=== PATIENT | female | born 1990 | race Caucasian/White ===

== ENCOUNTER 2020-08-06 06:45 | Outpatient (RCR) | payer BC ==
[~2020-08-06] VITALS: Ht 157.5 cm; Wt 109.1 kg
[~2020-08-06 06:45] MED LIST: ACHD5005 PO; AGM875T PO; AMOX250S5 PO; CEPH-507 PO; DEXAINTSOL PO; DOCU100C37 PO; HYDR473S54 PO; IBP600T1 PO; IBUP-1773 PO; METR500T PO; NORE1PAT7 TD; OXYC-12 PO; PREN1TAB39 PO; TETRACAINESUCKERS MT
[2020-08-06] MEDS ORDERED: PROM25TA14 PO (15:10)
[2020-08-06] MEDS ORDERED: BUTA1CAP41 PO (15:10)
[2020-08-06] MEDS ORDERED: RIZA10TA94 PO (15:10)
[2020-08-06] MEDS ORDERED: LEVO5TAB28 PO (15:10)
[2020-08-06] MEDS ORDERED: TOPI25TA10 PO (15:10)
[2020-08-10] MEDS ORDERED: DOCU-143 PO (12:22)
[2020-08-10] MEDS ORDERED: IBUP-1780 PO (12:22)
[2020-08-10] MEDS ORDERED: OXYC1TAB87 PO (12:22)
[2020-08-10] MEDS ORDERED: ESTR2TAB4 PO (12:22)
[2020-08-11] MEDS ORDERED: OXYC1TAB12 PO (09:18)
== END 2020-08-07 15:52 | disposition home or self-care (01) ==
LOC: PREOP 06:45
PROVIDERS: ATTEND Obstetrics & Gynecology
DX: Z01.818 Encounter for other preprocedural examination (principal)

== ENCOUNTER 2020-08-10 10:58 | Day surgery (SDC) | payer BC ==
[~2020-08-10] VITALS: Ht 163.7 cm; Wt 109.1 kg
[2020-08-10] VITALS (13 sets, daily range): BP systolic 100–130; BP diastolic 54–81
[~2020-08-10 10:58] MED LIST changes: +BUTA1CAP41 PO; +LEVO5TAB28 PO; +PROM25TA14 PO; +RIZA10TA94 PO; +TOPI25TA10 PO
[2020-08-10] MEDS ORDERED: ESTRADIOL VAGINAL CREAM 42.5 GM (ESTRACE) VG ONE (11:29)
[2020-08-10] MEDS ORDERED: LIDOCAINE/EPI 1%-1:100,000 (XYLOCAINE) 50 ML ONE (11:29)
[2020-08-10] MEDS ORDERED: ceFAZolin INJECTION 1,000 MG in WATER (STERILE) FOR INJECTION 10 ML IV ONE (11:30)
[2020-08-10] MEDS ORDERED: LACTATED RINGERS 1,000 ML IV PRN (11:30)
[2020-08-10 11:36] LABS: BASOPHILS # (AUTO) 0.1 10^3/uL (0.0-0.1); BASOPHILS % (AUTO) 1 % (0-10); EOSINOPHILS # (AUTO) 0.1 10^3/uL (0.0-0.3); EOSINOPHILS % (AUTO) 1 % (0-10); HEMATOCRIT 45 % (35-52); HEMOGLOBIN 14.4 g/dL (11.5-16.0); LYMPHOCYTES % (AUTO) 19 % (12-44); MEAN CORPUSCULAR HEMOGLOBIN 27 pg (25-34); MEAN CORPUSCULAR HGB CONC 32 g/dL (32-36); MEAN CORPUSCULAR VOLUME 85 fL (80-99); MONOCYTES # (AUTO) 0.4 10^3/uL (0.0-1.0); MONOCYTES % (AUTO) 4 % (0-12); NEUTROPHILS # (AUTO) 8.1 10^3/uL (1.8-7.8); NEUTROPHILS % (AUTO) 76 % (42-75); PLATELET COUNT 312 10^3/uL (130-400); WHITE BLOOD COUNT 10.7 10^3/uL (4.3-11.0)
[2020-08-10] MEDS ORDERED: ONDANSETRON 4 MG/2 ML (SDV) Z0FRAN ONE (11:58)
[2020-08-10] MEDS ORDERED: SEVOFLURANE (ULTANE) 15 ML INHAL SOLN ONE ×2 (11:58→14:27)
[2020-08-10] MEDS ORDERED: ROCURONIUM 10 MG/ML 5 ML SYRINGE IV ONE ×2 (11:58→13:19)
[2020-08-10] MEDS ORDERED: NEOSTIGMINE 3 MG/3 ML VIAL ONE (11:58)
[2020-08-10] MEDS ORDERED: MIDAZOLAM 2 MG/2 ML (VERSED) VIAL ONE (11:58)
[2020-08-10] MEDS ORDERED: GLYCOPYRROLATE 0.2 MG/ML (ROBINUL) 2 ML VIAL ONE (11:58)
[2020-08-10] MEDS ORDERED: LIDOCAINE PF 2% 5 ML (XYLOCAINE) VIAL ONE (11:58)
[2020-08-10] MEDS ORDERED: proPOfol 200 MG/20 ML (DIPRIVAN) VIAL IV ONE (11:58)
[2020-08-10] MEDS ORDERED: fentaNYL INJ 100 MCG/2 ML AMP ONE ×2 (11:58→16:30)
--- NOTE | 2020-08-10 12:17 | Progress Note-Pre Operative ---
Pre-Operative Progress Note H&P Reviewed The H&P was reviewed, patient examined and no changes noted. Date Seen by Provider: Aug 10, 2020 Time Seen by Provider: 12:17 Date H&P Reviewed: Aug 10, 2020 Time H&P Reviewed: 12:17 Pre-Operative Diagnosis: Dysfunctional uterine bleeding/menorrhagia/chronic pelvic pain/uterovaginal LADANMARTA DUBOSE MD Aug 10, 2020 12:17
--- NOTE | 2020-08-10 12:18 | Progress Note-Post Operative ---
Post-Operative Progess Note Surgeon (s)/Reed Repairer (s) Surgeon MARTA PICKERING MD Reed Repairer: Valery Pre-Operative Diagnosis Dysfunctional uterine bleeding/menorrhagia/chronic pelvic pain/uterovaginal Post-Operative Diagnosis Same with pathology pending Procedure & Operative Findings Date of Procedure 08/10/20 Procedure Performed/Findings Total laparoscopic hysterectomy with bilateral salpingo-oophorectomy, LSappendectomy, LS adhesiolysis and anterior vaginal repair and posterior vaginal repair as well as Dr. Ramirez performing pubovaginal sling and cystoscopy Anesthesia Type GETA Estimated Blood Loss Estimated blood loss (mL): 100cc Specimens/Packing Specimens Removed Uterus fallopian tubes and ovaries, Sigmoid epiploicic solid nodule, appendix Packing: kerlix in vagina MARTA PICKERING MD Aug 10, 2020 12:18
[2020-08-10] MEDS ORDERED: IBUP-1780 PO (12:22)
[2020-08-10] MEDS ORDERED: OXYC1TAB87 PO (12:22)
[2020-08-10] MEDS ORDERED: ESTR2TAB4 PO (12:22)
[2020-08-10] MEDS ORDERED: DOCU-143 PO (12:22)
--- NOTE | 2020-08-10 12:23 | Discharge Inst-Surgical ---
Discharge Inst-Surgical Depart Medication/Instructions New, Converted or Re-Newed RX: RX on Chart Consults/Follow Up Patient Instructions: As directed Orders & Referrals Follow Up Appt: Return to clinic on Thursday, August 13, 2020 at 9:30 AM for staple removal Call to make follow up appt. for patient in 4 weeks. Activity: Rest for 24 hours, than as tolerated. Wound Care: May remove Band-Aid tomorrow. Replace as desired. Keep incisions clean and dry. Wash daily with soap and water. Please call in RX to patient pharmacy. Diet: As tolerated may shower or tub bathe as desired. No driving for 24 hours, no alcoholic beverages for 24 hours, and nothing per vagina (no tampons, douching, or intercoUrse) for 8 weeks. Patient to return to the clinic as soon as possible for: Temperature greater than 101F, Severe Pain, Foul discharge from incision or vagina, Excessive Bleeding (more than a period). Activity Activity as Tolerated: No Diet Discharge Diet: No Restrictions MARTA PICKERING MD Aug 10, 2020 12:23
[2020-08-10] MEDS ORDERED: BENZOCAINE/MENTHOL (DERMOPLAST) 60 ML CAN TP PRN (12:30)
[2020-08-10] MEDS ORDERED: oxyCODONE/APAP 5/325MG (PERCOCET 5) TABLET PO PRN (12:30)
[2020-08-10] MEDS ORDERED: ESTROGENS CONJ INJECTION 25 MG in WATER (STERILE) FOR INJECTION 5 ML IV ONE (12:30)
[2020-08-10] MEDS ORDERED: D5 LR IV SOLUTION 1,000 ML IV SCH (12:30)
[2020-08-10] MEDS ORDERED: ONDANSETRON 4 MG/2 ML (SDV) Z0FRAN IVP PRN ×2 (12:30→14:45)
[2020-08-10] MEDS ORDERED: KETOROLAC 30 MG/ML VIAL IVP SCH (12:30)
[2020-08-10] MEDS ORDERED: HYDROmorphone 2 MG/ML VIAL (DILAUDID) ONE (14:04)
--- NOTE | 2020-08-10 14:11 | Progress Note-Post Operative ---
Post-Operative Progess Note Surgeon (s)/Artist Blacksmith (s) Surgeon HUBERT SALAS MD Artist Blacksmith: Raymond PICKERING Pre-Operative Diagnosis INCONTINENCE Post-Operative Diagnosis SAME Procedure & Operative Findings Date of Procedure 08/10/20 Procedure Performed/Findings PVS AND CYSTOSCOPY Anesthesia Type GENERAL Estimated Blood Loss Estimated blood loss (mL): NEGLIGIBLE Specimens/Packing Specimens Removed NONE PackinGM EXTRACE VAG PACK HUBERT SALAS MD Aug 10, 2020 14:11
[2020-08-10] MEDS ORDERED: ESTROGENS CONJ IV 25 MG/5 ML (PREMARIN) VIAL ONE (14:28)
[2020-08-10] MEDS ORDERED: KETOROLAC 30 MG/ML VIAL ONE (14:28)
[2020-08-10] MEDS ORDERED: WATER (STERILE) FOR INJECTION 10 ML ONE (14:28)
[2020-08-10] MEDS ORDERED: morphine INJ 10 MG/ML 1ML (SYR OR VIAL) IVP ONE (14:45)
[2020-08-10] MEDS ORDERED: HYDROmorphone 2 MG/ML VIAL (DILAUDID) IV ONE (14:45)
--- NOTE | 2020-08-10 14:45 | Anesthesia-General Post-Op ---
General Patient Condition Mental Status/LOC: Same as Preop Cardiovascular: Satisfactory Nausea/Vomiting: Absent Respiratory: Satisfactory Pain: Controlled Complications: Absent Post Op Complications Complications None Follow Up Care/Instructions Patient Instructions None needed. Anesthesia/Patient Condition Patient Condition Patient is doing well, no complaints, stable vital signs, no apparent adverse anesthesia problems. THOMAS WATSON DO Aug 10, 2020 14:45
[2020-08-10] MEDS: fentaNYL INJ 100 MCG/2 ML AMP IVP PRN ×2 (16:43→18:38)
--- NOTE | 2020-08-10 20:57 | OPERATIVE REPORT ---
DATE OF SERVICE: 08/10/2020 PREOPERATIVE DIAGNOSIS: On my part, urinary incontinence. POSTOPERATIVE DIAGNOSIS: On my part, urinary incontinence. OPERATION PERFORMED: Pubovaginal sling and cystoscopy. SURGEON: Dionisio Salas MD ANESTHESIA: General. COMPLICATIONS: None. DESCRIPTION OF PROCEDURE: After Dr. Gonzales performed the first part of his surgery and that he will dictate and opened the anterior vaginal mucosa and dissection carried toward the pubic arch. I passed the Desara One pubovaginal sling on both sides using the described technique. The sling was sitting nicely under the mid urethra with no twist, no gapping and passage of a hemostat easily between it and underlying tissue. I went ahead and removed the Belle catheter and performed cystoscopy to confirm the integrity of the bladder, ureteral orifices and urethra with no foreign bodies. I left the bladder half full to perform a Valsalva maneuver manually after removing the scope, it was negative. I reinserted the Belle catheter and Dr. Gonzales procedure was the rest of his surgery that he will dictate. Estimated blood loss on my part negligible. Job ID: [id number] DocumentID: [id number] Dictated Date: 08/10/2020 14:13:25 Theology Professor Date: 08/10/2020 20:56:42 Dictated By: DIONISIO SALAS MD
[2020-08-10] MEDS ORDERED: DOCUSATE SODIUM 100 MG (COLACE) CAP PO ONE (21:00)
[2020-08-10] MEDS: KETOROLAC 30 MG/ML VIAL IVP SCH (21:06)
[2020-08-10] MEDS ORDERED: oxyCODONE/APAP 10/325MG (PERCOCET 10) TABLET PO ONE (22:24)
[2020-08-10] MEDS: oxyCODONE/APAP 10/325MG (PERCOCET 10) TABLET PO PRN (22:31)
--- NOTE | 2020-08-10 23:22 | OPERATIVE REPORT ---
DATE OF SERVICE: 08/10/2020 PREOPERATIVE DIAGNOSES: Uterovaginal prolapse, stress urinary incontinence, menorrhagia, dysmenorrhea and pelvic pain. POSTOPERATIVE DIAGNOSES: Uterovaginal prolapse, stress urinary incontinence, menorrhagia, dysmenorrhea and pelvic pain with endometriosis, extensive pelvic adhesions and appendiceal adhesions and fibrosis, and sigmoid epiploic solid nodule OPERATIVE PROCEDURE: Total laparoscopic hysterectomy with bilateral salpingo-oophorectomy, extensive adhesiolysis, Sigmoid epiploic nodule removal, and laparoscopic appendectomy followed by anterior and posterior vaginal repairs with Dr. Meléndez doing a pubovaginal sling and cystoscopy. OPERATIVE DESCRIPTION: With the patient in the supine position under satisfactory general anesthesia, she was repositioned in dorsal lithotomy position in the [facility] and then prepped and draped in the usual fashion for abdominal vaginal surgery using the da Beth for assistance. The weighted speculum was then placed in posterior fornix of vagina, cervix exposed and grasped anteriorly with single tooth tenaculum. Uterus was sounded to 9.5 cm with uterine sound. The cervix was then serially dilated with Westley dilators to accommodate a Jennifer II manipulator, which was placed with a 25 mm colpotomy ring and a 6 mm x 8 cm uterine probe. Sutures of #1 Vicryl were placed at 3 and 9 o'clock positions of the cervix to affix the uterus to the manipulator. The patient brought in low dorsal lithotomy position. A 12 mm incision made superior to the umbilicus. Veress needle was placed through that incision, correct placement confirmed with water drop test. The abdomen was insufflated with 2.4 liters of carbon dioxide and the Veress needle was removed and a 12 mm Optiview laparoscopic port was placed easily. The laparoscope was introduced. There was obvious omentum adherent to the anterior abdominal wall extending from the pelvis and the uterus approximately chcf up to the umbilicus. Those adhesions were clear of the abdominal wall laterally. Therefore, we transilluminated the abdominal wall and placed 8 mm ports 9 cm lateral to the umbilicus and approximately 3 cm above the umbilicus. The patient was placed in Trendelenburg allowing the bowel spill out of the pelvis. The da Beth column was docked and operative instruments were placed in right and left lateral ports . I retired to the Giftiki Beth console. At the console using the monopolar shear on the right and a bipolar fenestrated grasper on the left, the adhesions of the omentum to the anterior abdominal wall were taken free, allowing access to the pelvis, the omentum was adherent down the anterior abdominal wall to the bladder dome and then across the bladder dome and off the lower uterine segment across up to the fundus of the uterus. This dissection was very meticulous and careful as the bladder was involved in the area of the adhesions. With the omentum freed, the pelvis was fully visualized. There were still extensive adhesions to the lower uterine segment and the bladder dome and the peritoneum anteriorly likely due to C-sections. The appendix was identified and was seen to be tortuous, involved in extensive adhesions, fibrotic appearing and inflamed in its distal third. Decision was made to go ahead with appendectomy. I opened mesoappendix across the base of appendix and then divided the mesoappendix until the appendix was skeletonized to its attachment on the cecum, it was left in situ for removal later. Attention was now turned to the pelvis. Using the vessel sealer on the right and a bipolar fenestrated grasper on the left, the fallopian tube and ovary on the right was elevated. The right ureter was peristalsing well away from the IP ligament. The IP ligament was clamped, cauterized and divided. Continue stepwise across to the round ligament, then carefully across the round ligament as there were extensive adhesions of the peritoneum and the bladder to the anterior lower uterine segment and down on the cervix, dissection was carried under the peritoneum to allow for continuing the separation and control of the vessels down to the cardinal ligament and down onto the cardinal ligament on the right. Same procedure performed on the left, allowing for removal of both tubes and ovaries eventually with the uterus. There had been extensive adhesions of the cecum to the left pelvic brim. These were taken free to expose the left IP ligament. Using a monopolar shear now on the right in place of the vessel sealer, the anterior lower uterine segment peritoneum was divided, most of this had been taken down already from the previous dissection, this allowed the bladder to be dissected down off the lower uterine segment and colpotomy incision was started at the 12 o'clock position onto the colpotomy ring that was continued circumferentially until the entire colpotomy ring was exposed and the uterus with tubes and ovaries still attached was extracted through the vagina. Vaginal cuff was closed with a single suture of V-Loc barbed suture starting with one suture which broke and then started over with a new suture and completed the closure in the usual manner starting from the right angle, taking care to include the uterine vessels in the closure and continue across the vaginal cuff and closing the left angle same as the right. Hemostasis was complete. Good reapproximation was achieved and good support of the vaginal apex was evident. With no remaining abnormal pathology, some spots of endometriosis in the cul-de-sac and on the uterosacral ligaments bilaterally had been cauterized with the monopolar shear at the beginning of the procedure. With no further abnormal pathology, the da Beth portion of the procedure was halted. The operative instruments were removed, and the da Beth column was undocked, leaving the ports in place. We put the scope in the left lateral port and then a grasper in the right lateral port and an Endo-CRISTIANO and the umbilical port. The appendix was grasped and elevated. GI was placed across the base of the appendix and fired, severing the appendix from its attachment, the appendix was then placed in an Endobag and brought out through the umbilical incision. Hemostasis was complete and with the procedure complete, the procedure was terminated. The operative ports were removed under direct vision and the abdomen was evacuated of the insufflating gas in the process. There was no bleeding from any of the port sites. The fascia at the supraumbilical port was closed with mgavim-di-xixln suture of 2-0 Vicryl. The skin incision with cameron. The patient was brought in the dorsal lithotomy position for the vaginal portion of the procedure. A weighted speculum placed in posterior fornix of vagina. The anterior vaginal wall was grasped with two Juany clamps and an incision was made in the midline from the urethra to approximately 3.5 to 4 cm up the post of the anterior vaginal wall. Dissection was carried over to the pubic rami bilaterally allowing for the placement of a pubovaginal sling. At this point, Dr. Meléndez assumed care of the patient. I remained to assist. Dr. Meléndez placed the pubovaginal sling and performed cystoscopy with normal findings in the bladder. Both ureteral orifices were normal and efluxing urine. The Belle catheter was replaced on completion of Dr. Meléndez portion of the procedure and then I resumed care of the patient. The redundant anterior vaginal muscularis mucosa was removed sharply. The vaginal wall was closed with a running suture of 3-0 Vicryl Rapide allowing for reapproximation and elevation of the endopelvic fascia and then the anterior wall of the vagina obliterating the cystocele. Posterior repair was effected by placing Juany clamps on the hymenal ring at 5 to 7 o'clock position, an inverted triangle of skin was removed from the perineal body and upright triangle was removed from the posterior vaginal floor. The patient had a small rectocele that was reduced. Sutures of #3-0 Vicryl Rapide was then used to close the wall of the vagina and reapproximate the fibrous perineal body tissue and rectovaginal septum tissue over the rectum restoring the posterior vaginal wall. The closure was continued past the hymenal ring down on the perineal body then back up subcutaneously to the hymenal ring where the suture was tied. The vagina was examined for hemostasis, which was complete, both anteriorly and posteriorly and across the vaginal cuff. Sponge and needle counts were correct at this point and blood loss was around 100 cc. The vagina was now filled with Estrace vaginal cream and a pack of Kerlix gauze was placed. The patient was uneventfully awakened from her general anesthesia and transferred to the recovery room in stable condition. Job ID: [id number] DocumentID: [id number] Dictated Date: 08/10/2020 14:24:19 Parts Counter Clerk Date: 08/10/2020 21:46:56 Dictated By: MARTA PICKERING MD MTDD
[2020-08-11] MEDS: KETOROLAC 30 MG/ML VIAL IVP SCH (02:35)
[2020-08-11 02:37] VITALS: BP 110/56
[2020-08-11] MEDS: oxyCODONE/APAP 10/325MG (PERCOCET 10) TABLET PO PRN (03:17)
[2020-08-11 06:18] VITALS: BP 103/56
[2020-08-11 08:15] VITALS: BP 106/64
[2020-08-11] MEDS ORDERED: ESTRADIOL 1 MG TAB (ESTRACE) PO SCH (09:00)
[2020-08-11] MEDS ORDERED: DOCUSATE SODIUM 100 MG (COLACE) CAP PO SCH (09:00)
[2020-08-11] MEDS ORDERED: OXYC1TAB12 PO (09:18)
--- NOTE | 2020-08-11 09:20 | Progress Note ---
Standard Progress Note Progress Notes/Assess & Plan Date Seen by a Provider: Aug 11, 2020 Time Seen by a Provider: 09:18 Progress/Assessment & Plan This patient is without complaint. She is ambulating, voiding, tolerating oral intake well and has good pain control. She did have issues with pain control through the night but pain medication was changed and her pain is well controlled now. She had a post void residual by bladder scan of 50 cc. Vital Signs Date Time Temp Pulse Resp B/P (MAP) Pulse Ox O2 Delivery O2 Flow Rate FiO2 08/11/20 08:15 37.0 80 20 106/64 (78) 94 Room Air 08/11/20 06:18 36.6 64 18 103/56 (72) 94 Room Air 08/11/20 02:37 36.9 71 16 110/56 (74) 96 Room Air 08/10/20 22:00 36.6 88 18 120/65 (83) 96 Room Air 08/10/20 17:50 36.5 76 16 118/69 (85) 98 Room Air 08/10/20 16:50 36.8 75 16 128/77 (94) 97 Room Air 08/10/20 16:05 82 16 130/64 (86) 98 Room Air 08/10/20 15:40 37.0 78 16 117/68 (84) 100 Room Air 08/10/20 15:30 Room Air 08/10/20 15:17 36.6 11 106/58 (74) 98 Room Air 08/10/20 15:10 16 109/60 (76) 100 Room Air 08/10/20 15:00 16 111/61 (78) 100 OxyMask 10 08/10/20 14:55 OxyMask 10 08/10/20 14:50 21 116/73 (87) 100 OxyMask 10 08/10/20 14:40 18 109/63 (78) 100 OxyMask 10 08/10/20 14:30 19 100/54 (69) 100 OxyMask 10 08/10/20 14:23 OxyMask 10 08/10/20 14:23 36.9 24 106/59 (75) 100 OxyMask 10 08/10/20 11:00 37.0 78 16 123/81 (95) 98 Room Air I & O 08/11/20 07:00 Intake Total 4310 ml Output Total 5540 ml Balance -1230 ml Vital signs are stable. Patient is afebrile. The abdomen is benign. The surgical incision dressings are clean dry and intact. Extremities show no clubbing cyanosis. There is no Homans' sign. Pelvic exam is deferred Assessment and plan postoperative day #1 doing well. Plan is for discharge home with follow-up in clinic Final Diagnosis Menorrhagia/uterovaginal prolapse/stress urinary incontinence MARTA PICKERING MD Aug 11, 2020 09:20
[2020-08-11 12:30] VITALS: BP 106/64
[2020-08-11] MEDS ORDERED: IBUPROFEN 800 MG (MOTRIN) TAB PO SCH (14:30)
== END 2020-08-11 12:30 | disposition home or self-care (01) ==
LOC: SDC 10:58 → WS 15:30 → SDC 08-11 12:30
PROVIDERS: ATTEND Obstetrics & Gynecology
DX: N92.0 Excessive and frequent menstruation with regular cycle (principal); N81.4 Uterovaginal prolapse, unspecified; N39.3 Stress incontinence (female) (male); N94.12 Deep dyspareunia; N94.6 Dysmenorrhea, unspecified; N93.8 Other specified abnormal uterine and vaginal bleeding; G89.29 Other chronic pain; N94.89 Other specified conditions associated with female genital organs and menstrual cycle; K63.89 Other specified diseases of intestine; N88.8 Other specified noninflammatory disorders of cervix uteri; D25.1 Intramural leiomyoma of uterus; N83.12 Corpus luteum cyst of left ovary; N83.11 Corpus luteum cyst of right ovary; N83.292 Other ovarian cyst, left side; N83.291 Other ovarian cyst, right side; K38.0 Hyperplasia of appendix; N73.6 Female pelvic peritoneal adhesions (postinfective); K38.8 Other specified diseases of appendix; E78.5 Hyperlipidemia, unspecified; E66.9 Obesity, unspecified; N80.9 Endometriosis, unspecified; Z68.41 Body mass index [BMI] 40.0-44.9, adult; Z90.89 Acquired absence of other organs; Z79.899 Other long term (current) drug therapy; Z83.3 Family history of diabetes mellitus
CPT/HCPCS: 57260; 57288; 58571; 84703; 85025; 86850; 86900; 86901; 87081; 88304; 88305; 88307; C1771; 36415